=== PATIENT | male | born 1955 | race Caucasian/White ===

== ENCOUNTER 2017-10-07 11:47 | Outpatient (REF) | payer MEDICAID, SELFPAY ==
[2017-10-07 13:53] LABS: COMMENT (LAB VIEW ONLY) 144.51 mg/dL
== END 2017-10-07 11:48 ==
LOC: NCHCN 11:47
PROVIDERS: PCP Family Medicine; Visit Provider Family Medicine
DX: E11.9 Type 2 diabetes mellitus without complications (principal); Z79.4 Long term (current) use of insulin
CPT/HCPCS: 82043; 82570

== ENCOUNTER 2017-12-31 07:54 | Outpatient (REF) | payer MEDICAID, SELFPAY ==
[2017-12-31 12:52] LABS: HCT 35.3 % (40.0-50.0); HGB 12.2 g/dL (13.5-17.5); Mean Corp. HGB Concentration 34.6 g/dL (32.0-36.0); Mean Corpuscular Hemoglobin 30.5 pg (27.0-33.0); Mean Corpuscular Volume 88.3 fL (80-95); Mean Platelet Volume 10.1 fL (8.0-11.0); Platelet Count 258 x1000/uL (130-400); White Blood Cell Count 7.32 k/cumm (4.4-10.8)
[2017-12-31 13:04] LABS: ALT 19 U/L (12-78); AST 13 U/L (15-37); Albumin 3.4 g/dL (3.4-5.0); Alkaline Phosphatase 104 U/L (46-116); Anion Gap 5.7 mmol/L (3-11); BUN 16 mg/dL (7-18); Bilirubin, Total 0.7 mg/dL (0.2-1.0); CO2 31.3 mmol/L (21.0-32.0); CREATININE 1.35 mg/dL (0.70-1.30); Calcium 8.9 mg/dL (8.5-10.1); Chloride 102 mmol/L (98-107); Estimated GFR 53.21 (mL/min/1.73m2); Glucose 81 mg/dL (70-100); Magnesium 1.9 mg/dL (1.8-2.4); PHOSPHORUS 3.1 mg/dL (2.6-4.7); Potassium 4.2 mmol/L (3.5-5.1); Sodium 139 mmol/L (136-145); Total Protein 6.8 g/dL (6.4-8.2)
[2018-01-01 12:10] LABS: Parathyroid Hormone,Intact 72 pg/ml (19-88)
[2018-01-02 05:11] LABS: Vitamin D 25 Total 32.7 ng/ml (30-100)
== END 2017-12-31 08:14 ==
LOC: NCHCN 07:54
PROVIDERS: PCP Family Medicine; Visit Provider Family Medicine
DX: E83.42 Hypomagnesemia (principal); D63.8 Anemia in other chronic diseases classified elsewhere; E55.9 Vitamin D deficiency, unspecified; N18.1 Chronic kidney disease, stage 1; E66.9 Obesity, unspecified
CPT/HCPCS: 80053; 82306; 85027; 83735; 83970; 84100

== ENCOUNTER 2018-07-24 07:22 | Outpatient (CLI) | payer OTHER, MEDICARE, SELFPAY ==
--- NOTE | 2018-07-24 10:00 | DI.US_ITS ---
SYMPTOMS/DIAGNOSIS: RIGHT-SIDED COSTOVERTEBRAL ANGLE TENDERNESS AND FLANK PAIN, ? CALCULUS, ? HYDRONEPHROSIS VERSUS OTHER KIDNEY DISEASE RENAL ULTRASOUND: The right kidney measured 11.1 x 5.2 x 6.0 cm. There is a question regarding a small echogenic focus involving the lower pole of the right kidney, which measures approximately 5.6 mm and could represent nephrolithiasis. The left kidney measures 12.3 x 5.3 x 5.4 cm and is unremarkable. The prevoid bladder contains 477 cc, the postvoid bladder contains 0. Both ureteral jets were visualized. The prostate is enlarged with a volume of 61 cc. SUMMARY: Probable right nephrolithiasis. No evidence of hydronephrosis. Prostatic enlargement is demonstrated.
== END 2018-07-24 07:42 ==
PROVIDERS: PCP Family Medicine; Visit Provider Internal Medicine
DX: R10.31 Right lower quadrant pain (principal); N20.0 Calculus of kidney; N40.0 Benign prostatic hyperplasia without lower urinary tract symptoms
CPT/HCPCS: 76770